=== PATIENT | female | born 1945 | race Caucasian/White ===

== ENCOUNTER 2019-02-08 21:46 | Emergency (ER) | payer MEDICARE, OTHER ==
[~2019-02-08] VITALS: Ht 170.2 cm; Wt 77.1 kg
--- OUTSIDE RECORDS SUMMARY | 2019-02-08 21:48 | XMS REPORT ---
Author Author [facility] Address Unknown Phone Unavailable Care Team Providers Care Continuing Education Director Name Role Phone Unavailable Unavailable Problems This patient has no known problems. Allergies, Adverse Reactions, Alerts This patient has no known allergies or adverse reactions. Medications This patient has no known medications. Results Test Description Test Time Test Comments Text Results Atomic Results Result Comments SCR MAMM BILATERAL UMER CAD DIGITAL 2018-09-06 09:06:58 - SCR MAMM BILATERAL UMER CAD DIGITALBILATERAL DIGITAL SCREENING MAMMOGRAM 3D/2D WITH CAD: 09/05/2018CLINICAL: Asymptomatic. Digital breast tomosynthesis was performed in addition to routine CC and MLO views. Current mammographic images were evaluated by either a [employer] M-Vu or a [employer] ImageFligoocker CAD (computer aided detection system). Comparison is made to exams dated 08/15/2017 mammogram, 07/06 mammogram, and 05/20/2015 mammogram - [facility]-. There are scattered fibroglandular tissues in both breasts. The patient is status post right mastectomy with right TRAM flap reconstruction; stable in appearance.No new suspicious mass, architectural distortion, malignant type calcification, or lymph node abnormality detected. Breast architecture is stable compared to prior exams.IMPRESSION: NEGATIVEThere is no mammographic evidence of malignancy. Resume annual screening mammography in one year. Hanna Das M.D. ar/:09/06/2018 09:06:58 Patternmaker Plaster: Marni JIMENEZ, [facility]-FWletter sent: BIRADS 1-2 Normal Mammogram BI-RADS: 1 Negative
--- OUTSIDE RECORDS SUMMARY | 2019-02-08 21:48 | XMS REPORT | Clinical Summary ---
Author Author [facility] Address Unknown Phone Unavailable Care Team Providers Care Air Value Tester Name Role Phone Kelly Barlow MD PCP Unavailable Allergies No Known Allergies Medications End Date Status Medication Sig Dispensed Refills Start Date Active fluticasone (FLONASE) 50 USE ONE (1) 0 mcg/actuation nasal spray SPRAY(S) IN 8 EACH NOSTRIL TWICE A DAY FOR 7 DAYS THEN TWICE A DAY NEEDED FOR CONGESTION/SI NUS PRESSURE. Active psyllium (METAMUCIL) 0.52 Take 0.52 g 0 gram capsule by mouth daily as needed. Active Lactobac no.41/Bifidobact Take by mouth 0 no.7 (PROBIOTIC-10 ORAL) as needed. Active coenzyme Q10 100 mg Take 100 mg 0 capsule by mouth daily. Active glucosamine Take by mouth 0 HCl/chondroitin rogers daily. (GLUCOSAMINE-CHONDROITIN ORAL) Active multivitamin (THERAGRAN) Take 1 tablet 0 tablet by mouth daily. 05/15/2019 Active citalopram (CeleXA) 20 MG Take 1 tablet 90 tablet 2 tablet (20 mg total) 8 by mouth daily. 06/22/2019 Active rosuvastatin (CRESTOR) 10 Take 1 tablet 90 tablet 3 MG tablet (10 mg total) 8 by mouth daily. 05/15/2018 Discontinued citalopram (CeleXA) 20 MG Take 1 tablet 90 tablet 1 tablet (20 mg total) 8 by mouth daily. 06/22/2018 Discontinued pravastatin (PRAVACHOL) Take 1 tablet 90 tablet 1 10 MG tablet (10 mg total) 8 by mouth nightly. Active Problems Problem Noted Date Hyperlipidemia 05/15/2018 Depression 05/15/2018 Encounters Care Team Description Date Type Specialty Evelyn Olsen MA Result - Labs 08/09/2018 Telephone Cardiology Shon Evans MD Coronary artery disease involving [place] coronary artery of [place] heart without angina pectoris 08/08/2018 Lab Lab Shon Evans MD Coronary artery disease involving [place] coronary artery of [place] heart without angina pectoris (Primary Dx); Hypercholesterolemia 08/08/2018 Office Visit Cardiology Kelly Barlow MD 06/30/2018 Refill Internal Medicine Evelyn Olsen MA Appointment 06/30/2018 Telephone Cardiology Alisson Weaver RN return call/ high triglycerides 06/28/2018 Telephone Cardiology Shon Evans MD Abnormal EKG; Abnormal finding on cardiovascular stress test 06/23/2018 Hospital Procedural Cardiology Encounter Alisson Weaver RN Med Refill 06/22/2018 Refill Cardiology Shon Evans MD Abnormal EKG; Abnormal finding on cardiovascular stress test 06/20/2018 Lab Lab Kelly Barlow MD Schroth, George, MD Hypercholesterolemia (Primary Dx); Abnormal EKG; Abnormal finding on cardiovascular stress test 06/20/2018 Office Visit Cardiology Kelly Barlow MD 05/23/2018 Orders Only Internal Medicine Dorcas Keith MA 05/23/2018 Telephone Internal Medicine Lorenza Mcdermott MA 05/22/2018 Telephone Internal Medicine Kelly Barlow MD Abnormal EKG 05/19/2018 Hospital Procedural Cardiology Encounter Kelly Barlow MD Abnormal EKG (Primary Dx); Abnormal finding on cardiovascular stress test 05/19/2018 Orders Only Internal Medicine Kelly Barlow MD Depression, unspecified depression type (Primary Dx); Hyperlipidemia, unspecified hyperlipidemia type; Immunization due; Abnormal EKG 05/15/2018 Office Visit Internal Medicine after 02/07/2018 Immunizations Name Dates Previously Given Next Due FLUZONE HIGH-DOSE PF 05/15/2018 Influenza Trivalent 04/29/2012 Pneumococcal 05/15/2018 Polysaccharide Tdap 10/22/2015 Family History Medical History Relation Name Comments Ulcers Father PUD Arthritis Mother Heart failure Mother Relation Name Status Comments Father Mother Social History Date Tobacco Use Types Packs/Day Years Used Never Smoker Smokeless Tobacco: Never Used Tobacco Cessation: Counseling Given: Yes Alcohol Use Drinks/Week oz/Week Comments Yes occasionally Sex Assigned at Date Recorded Not on file Industry Job Start Date Occupation Not on file Not on file Not on file Travel End Travel History Travel Start No recent travel history available. Last Filed Vital Signs Time Taken Vital Sign Reading 08/08/2018 3:41 PM INSPECTOR WATCH TRAIN Blood Pressure 128/65 08/08/2018 3:41 PM INSPECTOR [employer] TRA[employer] Pulse 77 05/15/2018 9:30 AM INSPECTOR WATCH TRAIN Temperature 36.4 C (97.5 F) - Respiratory Rate - 05/15/2018 9:30 AM INSPECTOR WATCH TRAIN Oxygen Saturation 100% - Inhaled Oxygen - Concentration 08/08/2018 3:41 PM INSPECTOR WATCH TRAIN Weight 78.5 kg (173 lb) 08/08/2018 3:41 PM INSPECTOR WATCH TRA[employer] Height 165.7 cm (5' 5.25") 08/08/2018 3:41 PM INSPECTOR WATCH TRAIN Body Mass Index 28.57 Plan of Treatment Health Maintenance Due Date Last Done Comments SHINGLES VACCINES (#1) 12/14/1993 INFLUENZA VACCINE 02/08/2019 05/15/2018, 03/11/2017, 04/29/2012 65+ PNEUMOCOCCAL VACCINE 05/15/2019 05/15/2018 (2 of 2 - PCV13) BREAST CANCER SCREENING 08/15/2019 08/15/2017, 06/10/2017 (Previously completed) COLONOSCOPY SCREENING 12/16/2025 12/17/2015 Procedures Comments Procedure Name Priority Date/Time Associated Diagnosis LIPID PANEL Routine 08/08/2018 Coronary artery disease 4:44 PM INSPECTOR WATCH TRAIN involving conf[place] coronary artery of [place] heart without angina pectoris CT CARDIAC CALCIUM SCORE Routine 06/23/2018 Abnormal EKG 2:30 PM INSPECTOR WATCH TRAIN Abnormal finding on cardiovascular stress test LIPID PANEL Routine 06/20/2018 Abnormal EKG 2:30 PM INSPECTOR WATCH TRAIN Abnormal finding on cardiovascular stress test ECG 12-LEAD Routine 06/20/2018 Abnormal EKG 1:55 PM INSPECTOR WATCH TRAIN Abnormal finding on cardiovascular stress test CV TREADMILL STRESS TEST Routine 05/19/2018 Abnormal EKG 11:10 AM INSPECTOR WATCH TRAIN BASIC METABOLIC PANEL Routine 05/18/2018 Depression, unspecified 8:57 AM INSPECTOR WATCH TRAIN depression type THYROID STIMULATING Routine 05/18/2018 Depression, unspecified HORMONE 8:57 AM INSPECTOR WATCH TRAIN depression type LIPID PANEL Routine 05/18/2018 Hyperlipidemia, 8:57 AM INSPECTOR WATCH TRAIN unspecified hyperlipidemia type CBC WITH PLATELET AND Routine 05/18/2018 Depression, unspecified DIFFERENTIAL 8:57 AM INSPECTOR WATCH TRAIN depression type ECG 12-LEAD Routine 05/15/2018 Hyperlipidemia, 11:06 AM INSPECTOR WATCH TRAIN unspecified hyperlipidemia type after 02/07/2018 Results * Lipid panel (08/08/2018 4:44 PM INSPECTOR WATCH TRAIN) Only the most recent of 3 results within the time period is included. [facility] Signature Cholesterol 133 <200 mg/dL [facility] Triglycerides 102 <150 mg/dL [facility] HDL cholesterol 54 >40 mg/dL [facility] LDL cholesterol 70Comment: Result obtained by <100 mg/dL [place] direct LDL measurement [facility] Comment: [facility] Total Cholesterol HOSPITAL (mg/dL) <200 Desirable 200-239Borderline -high >=240High Triglycerides (mg/dL) <150 Normal 150-199Borderline -high 200-499High >=500Very high HDL Cholesterol (mg/dL) <40Low (male) <40Low (female) LDL Cholesterol (mg/dL) <100 Optimal 100-129Near or above optimal 130-159Borderline -high 160-189High >=190Very high Risk Catergories that modify LDL goals. Risk Catergories LDL goal (mg/dL) CHD and CHD risk equivalent<100 (10-year risk >20%) Multiple (2+) risk factors <130 (10-year risk=<20%) 0-1 risk factors <160 (<10-year risk) Defining levels of lipids in metabolic syndrome Triglycerides >=150 mg/dL HDL Cholesterol Men <40 mg/dL Women <40 mg/dL Non-HDL cholesterol is a second target for therapy in persons with high triglycerides (>=200 mg/dL) Specimen Plasma specimen Performing Organization Address City/State/Zipcode Phone Number [facility] DEPARTMENT OF [address] [place] [address] PATHOLOGY AND GENOMIC MEDICINE [address] [address] [facility] * Ct cardiac calcium score (06/23/2018 2:30 PM INSPECTOR WATCH TRAIN) Specimen Narrative Performed At [facility] Nuclear Cardiology and Cardiac CT [address] [place] [address] CT Calcium Scoring Report Pat.Name:Mikey PERRY.ID:[id number] St.Date: 06/23/2018Refer.MD:SHON EVANS MD Exam Time: 2:12:00 PMStudy Type:CT Calcium Scoring Height:65inWeight:178lb BSA: 1.88 m2 DOBAge:1945,72Y Sex: FEMALEHR:83 bpm Nuclear Tech:RT Romulo(R)(CT) Pat. Stat.:Outpatient CPT - 4: Rad Sandy Event ID:[id number] Order ID:[id number] Procedures:CT Flash mode Race:C SUMMARY: Technique: Sequential 3mm CT cuts were obtained through the chest using the Siemens Somatom Force CT scanner with ECG gating.Interactive image viewing and volumetric display and analysis were also performed.The CAC score was quantified using the Agaston scoring method. Non-contrast Cardiac CT results are as follows: The total Coronary Artery Calcium Score (CACS) is 132 .Calcium is distributed in the coronary arteries as follows: Left main: 0 .Left Anterior Descending (LAD): 122 .Left Circumflex (LCx): 7 .Right Coronary Artery (RCA): 3 . The non-contrast CT shows a normal cardiac size, no pericardial abnormalities, a normal aortic root of 3.9cm, a normal thoracic ascending aorta of 3.3cm, and a normal descending thoracic aorta of 2.5cm. The left main and right coronary arteries appear to originate normally from the left and right sinus of Valsalva.The right coronary artery is dominant. Non-Cardiac Findings:Surgical clips in the right lateral chest wall. Conclusion: Abnormal non-contrast cardiac CT. The coronary artery calcium score indicates a moderate extent of coronary atherosclerosis with a 1-2% / year risk of a major cardiac event.The CACS is at the 67th percentile based on age and gender. Recommendation: (1) Intensive risk factor modification is indicated to prevent further progression of coronary atherosclerosis.Unless contraindicated, low dose aspirin (81mg) is recommended in addition to treatment of hyperlipidemia with target LDL levels <70mg/dl. (2) Stress myocardial perfusion imaging may be helpful in selected patients such as those with metabolic syndrome or diabetes mellitus in whom silent myocardial ischemia is more prevalent Signed 06/23/2018 07:49 PM Bryan Toney MD Procedure Note Interface, Radiology Results In - 06/23/2018 7:49 PM [facility] Nuclear Cardiology and Cardiac CT [address] [place] [address] CT Calcium Scoring Report Pat.Name: DIAN PERRY Pat.ID: [id number] .Date: 06/23/2018 Refer.MD: SHON EVANS MD Exam Time: 2:12:00 PM Study Type:CT Calcium Scoring Height: 65in Weight: 178lb BSA: 1.88 m2 Age: 4 1945,72Y Sex: FEMALE HR: 83 bpm Nuclear Tech:RT Romulo(Vashti)(CT) Pat. Stat.:Outpatient CPT - 4: Leroy Pay Nuclear Event ID:[id number] Order ID: [id number] Procedures:CT Flash mode Race: C SUMMARY: Technique: Sequential 3mm CT cuts were obtained through the chest using the Siemens Somatom Force CT scanner with ECG gating. Interactive image viewing and volumetric display and analysis were also performed. The CAC score was quantified using the Agaston scoring method. Non-contrast Cardiac CT results are as follows: The total Coronary Artery Calcium Score (CACS) is 132 . Calcium is distributed in the coronary arteries as follows: Left main: 0 . Left Anterior Descending (LAD): 122 . Left Circumflex (LCx): 7 . Right Coronary Artery (RCA): 3 . The non-contrast CT shows a normal cardiac size, no pericardial abnormalities, a normal aortic root of 3.9cm, a normal thoracic ascending aorta of 3.3cm, and a normal descending thoracic aorta of 2.5cm. The left main and right coronary arteries appear to originate normally from the left and right sinus of Valsalva. The right coronary artery is dominant. Non-Cardiac Findings: Surgical clips in the right lateral chest wall. Conclusion: Abnormal non-contrast cardiac CT. The coronary artery calcium score indicates a moderate extent of coronary atherosclerosis with a 1-2% / year risk of a major cardiac event. The CACS is at the 67th percentile based on age and gender. Recommendation: (1) Intensive risk factor modification is indicated to prevent further progression of coronary atherosclerosis. Unless contraindicated, low dose aspirin (81mg) is recommended in addition to treatment of hyperlipidemia with target LDL levels <70mg/dl. (2) Stress myocardial perfusion imaging may be helpful in selected patients such as those with metabolic syndrome or diabetes mellitus in whom silent myocardial ischemia is more prevalent Signed 06/23/2018 07:49 PM Bryan Toney MD Performing Organization Address City/[facility] Phone Number [facility] [address] [place] [address] * ECG 12 lead (06/20/2018 1:55 PM INSPECTOR WATCH TRAIN) Only the most recent of 2 results within the time period is included. Pathologist [facility] Ventricular 92 [facility] MUSE rate Atrial rate 92 [facility] MUSE AK interval 164 [facility] M[facility] QRSD interval 94 [facility] MUSE QT interval 322 [facility] M[facility] QTC interval 398 [facility] P axis 1 61 [facility] M[facility] QRS axis 1 -26 [facility] M[facility] T wave axis 72 [facility] MUSE EKG impression Normal sinus HM MUSE rhythm-Nonspecific ST and T wave abnormality-Abnormal ECG-In automated comparison with ECG of 15-MAY-2018 11:06,-premature atrial complexes are no longer present-Nonspecific T wave abnormality, worse in Lateral leads-QT has shortened- Specimen Narrative Performed At Performing Organization Address [facility] Phone Number [facility] [address] [place] [address] * CV stress test exercise (05/19/2018 11:10 AM INSPECTOR WATCH TRAIN) Resting HR 86 [facility] MUSE Resting BP [facility] MUSE Peak MET 5.8 [facility] MUSE Achieved Protocol Name BANDAR LIN [facility] MUSE Time in 00:04:01 [facility] MUSE Exercise Phase Max Systolic BP 210 [facility] MUSE Max Diastolic 100 [facility] MUSE BP Max Heart Rate 137 [facility] MUSE Max Predicted 146 [facility] MUSE Heart Rate Target HR (220 - Age)*100% [facility] MUSE Formula Test Indication abn.ekg [facility] MUSE Arrhy During Ex [facility] MUSE ECG Interp [facility] MUSE Before EX ECG Interp [facility] MUSE During Ex Ex Summary [facility] MUSE Comment Overall HR [facility] MUSE Response to Exercise Overall BP [facility] MUSE Response To Exercise Reason for [facility] MUSE Termination Stress Test Inconclusive due to abnormal [facility] MUSE Impression baseline ekg- Specimen Performing Organization Address City/State/Zipcode Phone Number [facility] MUSE [address] [place] [address] * CBC with platelet and differential (05/18/2018 8:57 AM INSPECTOR WATCH TRAIN) Pathologist [facility] WBC 6.4 3.8 - 10.8 [facility] Thousand/uL [facility] [place] RBC 4.17 3.80 - 5.10 [facility] Million/uL [facility] [place] HGB 13.0 11.7 - 15.5 g/dL [facility] [place] HCT 39.1 35.0 - 45.0 % [facility] [place] MCV 93.8 80.0 - 100.0 fL [facility] [place] MCH 31.2 27.0 - 33.0 pg [facility] [place] MCHC 33.2 32.0 - 36.0 g/dL [facility] [place] RDW 12.0 11.0 - 15.0 % [facility] [place] Platelet count 263 140 - 400 [facility] Thousand/uL [facility] [place] MPV 10.7 7.5 - 12.5 fL [facility] [place] Neutrophils, 3,725 1,500 - 7,800 [facility] absolute cells/uL [facility] [place] Lymphocytes, 1,613 850 - 3,900 cells/uL [facility] absolute [facility] [place] Monocytes, 634 200 - 950 cells/uL [facility] absolute [facility] [place] Eosinophils, 358 15 - 500 cells/uL [facility] absolute [facility] [place] Basophils, 70 0 - 200 cells/uL [facility] absolute [facility] [place] Neutrophils 58.2 % [facility] [place] Lymphocytes 25.2 % [facility] [place] Monocytes 9.9 % [facility] [place] Eosinophils 5.6 % [facility] [place] Basophils + RC 1.1 % [facility] [place] Specimen Blood Narrative Performed At FASTING:YES [facility] FASTING: YES Resulting Agency Comment Performing Organization Information: Site ID: [id number] Name: [facility] Address: [address] [place] [phone] Director: Kiera Goldberg Performing Organization Address City/State/[facility]ode Phone Number [employer] [address] [phone] * Thyroid stimulating hormone (05/18/2018 8:57 AM INSPECTOR WATCH TRAIN) TSH 2.94 0.40 - 4.50 mIU/L [employer] [place] Specimen Blood Narrative Performed At FASTING:YES [facility] FASTING: YES Resulting Agency Comment Performing Organization Information: Site ID: [email or web address] Name: [facility] Address: [address] [place] [phone] Director: Kiera Goldberg Performing Organization Address [facility] Phone Number [employer] [address] [address] * Basic metabolic panel (05/18/2018 8:57 AM INSPECTOR WATCH TRAIN) Glucose 95 65 - 99 mg/dL [facility] Comment: DIAGNOSTICS Fasting [place] reference interval BUN, whole 11 7 - 25 mg/dL [facility] blood [facility] [place] Creatinine 0.69 0.60 - 0.93 mg/dL [facility] Comment: DIAGNOSTICS For patients >49 years of age, [place] the reference limit for Creatinine is approximately 13% higher for people identified as -[place]. EGFR Non-Afr. 86 > OR=60 [facility] [place] mL/min/1.73m2 [facility] [place] EGFR 99 > OR=60 [facility] [place] mL/min/1.73m2 [facility] [place] BUN/creatinine NOT APPLICABLE 6 - 22 (calc) [facility] ratio [facility] [place] Sodium 139 135 - 146 mmol/L [facility] [place] Potassium 4.0 3.5 - 5.3 mmol/L [facility] [place] Chloride 104 98 - 110 mmol/L [facility] [place] CO2 27 20 - 32 mmol/L [facility] [place] Calcium 8.9 8.6 - 10.4 mg/dL [facility] [place] Specimen Blood Narrative Performed At FASTING:YES [facility] FASTING: YES Resulting Agency Comment Performing Organization Information: Site ID: [id number] Name: [facility] Address: [address] [place] [phone] Director: Kiera Goldberg Performing Organization Address City/State/Zipcode Phone Number [facility] [employer] [facility] [place] [facility] [place] [phone] after 02/07/2018 Insurance Type Payer Benefit Subscriber ID Effective Phone Address Plan / Dates Group PPO HUMANA MEDICARE HUMANA xxxxxxxxx 2017-P MEDICARE resent PPO/PFFS/E [facility] Advance Directives Patient has advance care planning documents on file. For more information, chris franco contact: True Malcolm [address] [place] [address]
--- OUTSIDE RECORDS SUMMARY | 2019-02-08 21:48 | XMS REPORT | Summary of Care ---
Author Author Kenney Singh R.N. Organization Unknown Address [facility] Phone Unavailable Care Team Providers Care Metal Coater Operator Name Role Phone KATINA BHAGAT M.D. Unavailable Unavailable Kenney Singh R.N. Unavailable Unavailable [place], KATINA Unavailable Unavailable Unavailable Unavailable Functional Status Name Dates Details Functional status health issues are not documented Status: Name Dates Details Cognitive status health issues are not documented Status: Problems Name Dates Details Moderate episode of recurrent major depressive disorder (296.32, F33.1) Status: Active Chronic insomnia (780.52, F51.04) Status: Active Medications Name Dates Details Sertraline HCl - 50 MG Oral Tablet TAKE ONE TABLET BY MOUTH DAILY Quantity: 90 TANNU M.D., KATINA * Start : 09-Jan-2018 Active NIFEdipine 60 MG TBCR take 1 tab BID as directed * Refills: 0 Active Furosemide 40 MG Oral Tablet TAKE 1 TABLET TWICE DAILY. * Refills: 0 Active NovoLOG 100 UNIT/ML Subcutaneous Solution INJECT SUBCUTANEOUSLY DIRECTED. * Refills: 0 Active 10 ML Vial Plavix 75 MG Oral Tablet TAKE 1 TABLET DAILY. * Refills: 0 Active ARIPiprazole 2 MG Oral Tablet TAKE 1.5 TABLETS PO QAM. * Quantity: 135 Refills: 0 TANNU M.D., KATINA * Start : 08-Nov-2017 Active TraZODone HCl - 50 MG Oral Tablet Take 1/2 to 1 tablet at bedtime. * Quantity: 90 Refills: 0 TANNU M.D., KATINA * Start : 08-Nov-2017 Active Allergies and Adverse Reactions Name Dates Details No Known Drug Allergies (Allergy) Status: Active Past Medical History Name Dates Details History of Asthma (493.90, J45.909) Status: Resolved History of Cancer (199.1, C80.1) Status: Resolved History of Depression (311, F32.9) Status: Resolved History of Diabetes (250.00, E11.9) Status: Resolved History of High blood pressure (401.9, I10) Status: Resolved History of Kidney disease (593.9, N28.9) Status: Resolved Procedures Procedure Dates Details Procedures not documented Immunization Name Dates Details Immunizations not documented Social History Name Dates Details Unknown if ever smoked Vital Signs Date Test Result Details [id number] Physical Findings 13 Status: Comments: PHQ-9 Adult Depression Screening [id number] BP Systolic 103 mm[Hg] Status: Comments: Location: LUE; Position: Sitting BP Diastolic 62 mm[Hg] Status: Comments: Location: LUE; Position: Sitting Height 75 in Status: Weight 220 lb Status: Body Mass Index Calculated 27.5 kg/m2 Status: Body Surface Area Calculated 2.29 m2 Status: Temperature 98.4 f Status: Comments: Method: Tympanic Heart Rate 89 /min Status: Comments: Quality: Normal Respiration Rate 14 /min Status: Comments: Quality: Normal O2 SAT 99 % Status: Comments: Source: RA Results Date Description Value Details Results not documented Plan of Care Name Dates Details Planned Observations Planned Goals not documented Planned Encounters Appointment; KATINA BHAGAT M.D. On: 10-Oct-2018 13:00 Interventions Provided Discussion/Summary* Guideline Used: * Other: PA on Aripiprazole * [facility] * Spouse calling to inform Aripiprazole needs a prior authorization. * No new signs or symptoms from patient at this time. * Task sent to [facility] Adult Specialty Clinical Team. * Recommended Disposition: Call back with any further questions or concerns. * Intended Caller Action: * Other: Prior authorization request. * Additional Information: * Spouse verbalizes understanding of the call and agrees to disposition at this time. Instructions Name Dates Details Instructions not documented Encounters Appointment; KATINA BHAGAT M.D. Encounter Diagnosis: Problem not documented On: 08-Nov-2017 9:00 Appointment; KATINA BHAGAT M.D. Encounter Diagnosis: Problem not documented On: 12-Jan-2018 15:00 Appointment; KATINA BHAGAT M.D. Encounter Diagnosis: Problem not documented On: 17-Jul-2018 14:00
--- OUTSIDE RECORDS SUMMARY | 2019-02-08 21:52 | XMS REPORT | Clinical Summary ---
Author Author [facility] Organization [facility] Address Unknown Phone Unavailable Care Team Providers Care Lead Qa Analyst Name Role Phone Kelly Barlow MD PCP [...] Shon Evans MD Coronary artery disease involving tun[place] coronary artery of [place] heart without angina pectoris 08/08/2018 Lab Lab Sohn Evans MD Coronary artery disease involving [place] coronary artery of [place] heart without angina pectoris (Primary Dx); Hypercholesterolemia [...] Taken Vital Sign Reading 08/08/2018 3:41 PM CITY SECRETARY Blood Pressure 128/65 08/08/2018 3:41 PM CITY SECRETARY Pulse 77 05/15/2018 9:30 AM CITY SECRETARY Temperature 36.4 C (97.5 F) - Respiratory Rate - 05/15/2018 9:30 AM CITY SECRETARY Oxygen Saturation 100% - Inhaled Oxygen - Concentration 08/08/2018 3:41 PM CITY SECRETARY Weight 78.5 kg (173 lb) 08/08/2018 3:41 PM CITY SECRETARY Height 165.7 cm (5' 5.25") 08/08/2018 3:41 PM CITY SECRETARY Body Mass Index 28.57 Plan of Treatment Health Maintenance Due Date Last Done Comments SHINGLES VACCINES (#1) 12/14/1993 INFLUENZA VACCINE 02/08/2019 05/15/2018, 03/11/2017, 04/29/2012 65+ PNEUMOCOCCAL VACCINE 05/15/2019 05/15/2018 (2 of 2 - PCV13) BREAST CANCER SCREENING 08/15/2019 08/15/2017, 06/10/2017 (Previously completed) COLONOSCOPY SCREENING 12/16/2025 12/17/2015 Procedures Comments Procedure Name Priority Date/Time Associated Diagnosis LIPID PANEL Routine 08/08/2018 Coronary artery disease 4:44 PM CITY SECRETARY involving [place] coronary artery of [place] heart without angina pectoris CT CARDIAC CALCIUM SCORE Routine 06/23/2018 Abnormal EKG 2:30 PM CITY SECRETARY Abnormal finding on cardiovascular stress test LIPID PANEL Routine 06/20/2018 Abnormal EKG 2:30 PM CITY SECRETARY Abnormal finding on cardiovascular stress test ECG 12-LEAD Routine 06/20/2018 Abnormal EKG 1:55 PM CITY SECRETARY Abnormal finding on cardiovascular stress test CV TREADMILL STRESS TEST Routine 05/19/2018 Abnormal EKG 11:10 AM CITY SECRETARY BASIC METABOLIC PANEL Routine 05/18/2018 Depression, unspecified 8:57 AM CITY SECRETARY depression type THYROID STIMULATING Routine 05/18/2018 Depression, unspecified HORMONE 8:57 AM CITY SECRETARY depression type LIPID PANEL Routine 05/18/2018 Hyperlipidemia, 8:57 AM CITY SECRETARY unspecified hyperlipidemia type CBC WITH PLATELET AND Routine 05/18/2018 Depression, unspecified DIFFERENTIAL 8:57 AM CITY SECRETARY depression type ECG 12-LEAD Routine 05/15/2018 Hyperlipidemia, 11:06 AM CITY SECRETARY unspecified hyperlipidemia type after 02/07/2018 Results * Lipid panel (08/08/2018 4:44 PM CITY SECRETARY) Only the most recent of 3 results within the time period is included. [facility] Signature Cholesterol 133 <200 mg/dL [facility] Triglycerides 102 <150 mg/dL [facility] HDL cholesterol 54 >40 mg/dL [facility] LDL cholesterol 70Comment: Result obtained by <100 mg/dL [place] direct LDL measurement [facility] interpretation Comment: [facility] Total Cholesterol HOSPITAL (mg/dL) <200 Desirable 200-239Borderline [...] specimen Performing Organization Address City/State/Zipcode Phone Number [facility] DEPARTMENT OF [address] [place] [address] PATHOLOGY AND GENOMIC MEDICINE [address] [address] [facility] * Ct cardiac calcium score (06/23/2018 2:30 PM CITY SECRETARY) Specimen Narrative Performed At [facility] Nuclear Cardiology and Cardiac CT [address] [place] [address] CT Calcium Scoring Report Pat.Name:Mikey PERRY.ID:[id number] St.Date: 06/23/2018Refer.MD:SHON EVANS MD Exam Time: 2:12:00 PMStudy Type:CT Calcium Scoring Height:65inWeight:178lb BSA: 1.88 m2 DOBAge:1945,72Y Sex: FEMALEHR:83 bpm Nuclear Tech:RT Romulo(R)(CT) Pat. Stat.:Outpatient CPT - 4: Rad Sandy Event ID:[id number] Order ID:[id number] Procedures:CT Flash mode Race:C SUMMARY: Technique: Sequential [...] Radiology Results In - 06/23/2018 7:49 PM [facility] Nuclear Cardiology and Cardiac CT [address] [place] [address] CT Calcium Scoring Report Pat.Name: DIAN PERRY Pat.ID: [id number] .Date: 06/23/2018 Refer.MD: SHON EVANS MD Exam Time: 2:12:00 PM Study Type:CT Calcium Scoring Height: 65in Weight: 178lb BSA: 1.88 m2 Age: 4 1945,72Y Sex: FEMALE HR: 83 bpm Nuclear Tech:RT Romulo(Vashti)(CT) Pat. Stat.:Outpatient CPT - 4: Leroy Pay Nuclear Event ID:[id number] Order ID: [id number] Procedures:CT Flash mode Race: C SUMMARY: Technique: [...] PM Bryan Toney MD Performing Organization Address City/[facility] Phone Number [facility] [address] [place] [address] * ECG 12 lead (06/20/2018 1:55 PM CITY SECRETARY) Only the most recent of 2 results within the time period is included. Pathologist [facility] Ventricular 92 [facility] MUSE rate Atrial rate 92 [facility] MUSE AR interval 164 [facility] MUSE QRSD interval 94 [...] Specimen Narrative Performed At Performing Organization Address [facility] Phone Number [facility] [address] [place] [address] * CV stress test exercise (05/19/2018 11:10 AM CITY SECRETARY) Resting HR 86 [facility] MUSE Resting BP [...] Specimen Performing Organization Address City/State/Zipcode Phone Number [facility] MUSE [address] [place] [address] * CBC with platelet and differential (05/18/2018 8:57 AM CITY SECRETARY) Pathologist [facility] WBC 6.4 3.8 - 10.8 [facility] Thousand/uL [facility] [place] RBC 4.17 3.80 - 5.10 [facility] Million/uL [facility] [place] HGB 13.0 11.7 - 15.5 g/dL [facility] [place] HCT 39.1 35.0 - 45.0 % [facility] [place] MCV 93.8 80.0 - 100.0 fL [facility] [place] MCH 31.2 27.0 - 33.0 pg [facility] [place] MCHC 33.2 32.0 - 36.0 g/dL [facility] [place] RDW 12.0 11.0 - 15.0 % [facility] [place] Platelet count 263 140 - 400 [facility] Thousand/uL [facility] [place] MPV 10.7 7.5 - 12.5 fL [facility] [place] Neutrophils, 3,725 1,500 - 7,800 [facility] absolute cells/uL [facility] [place] Lymphocytes, 1,613 850 - 3,900 cells/uL [facility] absolute [facility] [place] Monocytes, 634 200 - 950 cells/uL [facility] absolute [facility] [place] Eosinophils, 358 15 - 500 cells/uL [facility] absolute [facility] [place] Basophils, 70 0 - 200 cells/uL [facility] absolute [facility] [place] Neutrophils 58.2 % [facility] [place] Lymphocytes 25.2 % [facility] [place] Monocytes 9.9 % [facility] [place] Eosinophils 5.6 % [facility] [place] Basophils + RC 1.1 % [facility] [place] Specimen Blood Narrative Performed At FASTING:YES [facility] FASTING: YES Resulting Agency Comment Performing Organization Information: Site ID: [id number] Name: [facility] Address: [address] [place] [phone] Director: Kiera Goldberg Performing Organization Address City/State/[facility] Cent[facility]ode Phone Number [facility] [address] [phone] * Thyroid stimulating hormone (05/18/2018 8:57 AM CITY SECRETARY) TSH 2.94 0.40 - 4.50 mIU/L [facility] [place] Specimen Blood Narrative Performed At FASTING:YES [facility] FASTING: YES Resulting Agency Comment Performing Organization Information: Site ID: [id number] Name: [facility] Address: [address] [place] [phone] Director: Kiera Goldberg Performing Organization Address [facility] Phone Number [facility] [address] [address] * Basic metabolic panel (05/18/2018 8:57 AM CITY SECRETARY) Glucose 95 65 - 99 mg/dL [facility] Comment: DIAGNOSTICS Fasting [place] reference interval BUN, whole 11 7 - 25 mg/dL [facility] blood [facility] [place] Creatinine 0.69 0.60 - 0.93 mg/dL [facility] Comment: DIAGNOSTICS For patients >49 years of age, [place] the reference limit for Creatinine is approximately 13% higher for people identified as -Danish. EGFR Non-Afr. 86 > OR=60 [facility] Danish mL/min/1.73m2 [facility] [place] EGFR 99 > OR=60 [facility] Danish mL/min/1.73m2 [facility] [place] BUN/creatinine NOT APPLICABLE 6 - 22 (calc) [facility] ratio [facility] [place] Sodium 139 135 - 146 mmol/L [facility] [place] Potassium 4.0 3.5 - 5.3 mmol/L [facility] [place] Chloride 104 98 - 110 mmol/L [facility] [place] CO2 27 20 - 32 mmol/L [facility] [place] Calcium 8.9 8.6 - 10.4 mg/dL [facility] [place] Specimen Blood Narrative Performed At FASTING:YES [facility] FASTING: YES Resulting Agency Comment Performing Organization Information: Site ID: [id number] Name: [facility] Address: [address] [place] [phone] Director: Kiera Goldberg Performing Organization Address City/State/Zipcode Phone Number [facility] [employer] [facility] [place] [phone] after 02/07/2018 Insurance Type Payer Benefit Subscriber ID Effective Phone Address Plan / Dates Group PPO HUMANA MEDICARE HUMANA xxxxxxxxx [id number] MEDICARE resent PPO/PFFS/E RS [facility] Advance Directives Patient has advance care planning documents on file. For more information, chris franco contact: True Malcolm [address] [place] [address]
--- NOTE | 2019-02-08 23:26 | Diagnostic Imaging Report ---
History: Fall, pain left face Comparison studies:None Technique: Axial images were obtained from the brain, face and cervical spine. Coronal and sagittal reconstructions obtained from the axial data. Dose modulation, iterative reconstruction, and/or weight based adjustment of the mA/kV was utilized to reduce the radiation dose to as low as reasonably achievable. Intravenous contrast: None Findings: Head CT: Scalp/skull: No abnormalities. No fractures, blastic or lytic lesions. Extra-axial spaces: No masses. No fluid collections. Brain sulci: Appropriate for age. Ventricles: Normal in size and configuration. No hydrocephalus. Parenchyma: No abnormal densities. No masses, hemorrhage, acute or chronic cortical vascular insults. Sellar/suprasellar region: No abnormalities Craniocervical junction: Patent foramen magnum. No Chiari one malformation. Maxillofacial CT: Soft tissues: An acute right periorbital/facial hematoma is associated with a punctate air focus lateral to the left maxillary sinus (series 8, image 77) but no hyperdense foreign bodies. Bones: A subtle comminuted fracture in the posterolateral wall of the left maxillary sinus does not extend into the skull base (series 8, image 72). Otherwise, no fractures or bony abnormalities. . Orbits: No abnormalities. Paranasal sinuses: Partial hemorrhagic and inflammatory opacification of the left maxillary sinus. Otherwise, scattered nonobstructing mucosal thickening. Cervical spine CT: Airway: Patent. Fractures: None. Soft tissues: No gross abnormalities. Atlantoaxial articulation: Minimally degenerated. Alignment: Normal lordosis. No scoliosis. Cervicomedullary junction: No abnormalities. The foramen magnum is patent. Vertebrae: Bones mildly the mineralized but no compression fractures No infection or neoplasm. Degenerative changes: Mildly degenerated discs at C5-6 and C6-7. Severely degenerated facets on the left at C4-5 and to a lesser extent at C5-6, bilaterally at C6-7 and C7-T1. Mild left foraminal stenosis at C4-5 due to the facet arthrosis. No significant spinal canal stenosis.. Incidental findings: Atherosclerotic calcifications at the carotid bulbs. IMPRESSION: Head CT: No intracranial abnormalities. Facial CT: 1. An acute left periorbital/facial superficial hematoma is associated with a subtle comminuted fracture in the posterolateral wall of the left maxillary sinus and with partial hemorrhagic and inflammatory opacification of the antrum. 2. No additional acute fractures or acute maxillofacial abnormalities. Cervical spine CT: 1. No acute abnormalities. No fractures 2. Cannot adequately evaluate for ligament, spinal cord and or vascular abnormalities. 3. Degenerative changes as described Signed by: Dr. Hemanth Mancera M.D. on 02/08/2019 11:23 PM
[2019-02-08] MEDS ORDERED: BACITRACIN ZINC 0.9GM TP ONE (23:45)
[2019-02-08 23:57] VITALS: BP 126/61
== END 2019-02-09 00:13 | disposition home or self-care (01) ==
LOC: ER 21:46
DX: S02.40CA Maxillary fracture, right side, initial encounter for closed fracture (principal); S00.212A Abrasion of left eyelid and periocular area, initial encounter; S00.83XA Contusion of other part of head, initial encounter; W01.0XXA Fall on same level from slipping, tripping and stumbling without subsequent striking against object, initial encounter; Y93.01 Activity, walking, marching and hiking; Y92.018 Other place in single-family (private) house as the place of occurrence of the external cause
CPT/HCPCS: 70450; 70486; 72125; 99283

== ENCOUNTER 2019-05-02 00:21 | Emergency (ER) | payer MEDICARE ==
[~2019-05-02] VITALS: Ht 170.2 cm; Wt 77.1 kg
--- OUTSIDE RECORDS SUMMARY | 2019-05-02 00:24 | XMS REPORT ---
Author Author [facility] Address Unknown Phone Unavailable Care Team Providers Care Division Road Supervisor Name Role Phone Ming FELIX Unavailable Unavailable Problems This patient has no known problems. Allergies, Adverse Reactions, Alerts This patient has no known allergies or adverse reactions. Medications This patient has no known medications. Results Test Description Test Time Test Comments Text Results Atomic Results Result Comments CT CERVICAL SPINE WO 2019-02-08 23:11:00 [place] [address] Patient Name: DIAN CALLAHAN MR #: [id number] : 1945 Age/Sex: 73/F Req #: [id number] Adm Physician: Ordered by: SIMA FELIX MD Report #: [id number] Location: ER Room/Bed: Procedure: [id number] CT/CT CERVICAL SPINE WO Exam Date: Exam Time: REPORT STATUS: Signed History: Fall, pain left face Comparison studies:None Technique: Axial images were obtained from the brain, face and cervical spine. Coronal and sagittal reconstructions obtained from the axial data. Dose modulation, iterative reconstruction, and/or weight based adjustment of the mA/kV was utilized to reduce the radiation dose to as low as reasonably achievable. Intravenous contrast: None Findings: Head CT: Scalp/skull: No abnormalities. No fractures, blastic or lytic lesions. Extra-axial spaces: No masses. No fluid collections. Brain sulci: Appropriate for age. Ventricles: Normal in size and configuration. No hydrocephalus. Parenchyma: No abnormal densities. No masses, hemorrhage, acute or chronic cortical vascular insults. Sellar/suprasellar region: No abnormalities Craniocervical junction: Patent foramen magnum. No Chiari one malformation. Maxillofacial CT: Soft tissues: An acute right periorbital/facial hematoma is associated with a punctate air focus lateral to the left maxillary sinus (series 8, image 77) but no hyperdense foreign bodies. Bones: A subtle comminuted fracture in the posterolateral wall of the left maxillary sinus does not extend into the skull base (series 8, image 72). Otherwise, no fractures or bony abnormalities. . Orbits: No abnormalities. Paranasal sinuses: Partial hemorrhagic and inflammatory opacification of the left maxillary sinus. Otherwise, scattered nonobstructing mucosal thickening. Cervical spine CT: Airway: Patent. Fractures: None. Soft tissues: No gross abnormalities. Atlantoaxial articulation: Minimally degenerated. Alignment: Normal lordosis. No scoliosis. Cervicomedullary junction: No abnormalities. The foramen magnum is patent. Vertebrae: Bones mildly the mineralized but no compression fractures No infection or neoplasm. Degenerative changes: Mildly degenerated discs at C5-6 and C6-7. Severely degenerated facets on the left at C4-5 and to a lesser extent at C5-6, bilaterally at C6-7 and C7-T1. Mild left foraminal stenosis at C4-5 due to the facet arthrosis. No significant spinal canal stenosis.. Incidental findings: Atherosclerotic calcifications at the carotid bulbs. IMPRESSION: Head CT: No intracranial abnormalities. Facial CT: 1. An acute left periorbital/facial superficial hematoma is associated with a subtle comminuted fracture in the posterolateral wall of the left maxillary sinus and with partial hemorrhagic and inflammatory opacification of the antrum. 2. No additional acute fractures or acute maxillofacial abnormalities. Cervical spine CT: 1. No acute abnormalities. No fractures 2. Cannot adequately evaluate for ligament, spinal cord and or vascular abnormalities. 3. Degenerative changes as described Signed by: Dr. Hemanth Mancera M.D. on 02/08/2019 11:23 PM Dictated By: HEMANTH MANCERA MD, MD [id number] Transcribed By: LORETTA on 02/08/19 2323 COPY TO: SIMA FELIX MD CT MAXIO FAC/PARANAS WO 2019-02-08 23:11:00 [place] [address] Patient Name: DIAN CALLAHAN MR #: [id number] : 1945 Age/Sex: 73/F Req #: [id number] Adm Physician: Ordered by: SIMA FELIX MD Report #: [id number] Location: ER Room/Bed: Procedure: [id number] CT/CT MAXIO FAC/PARANAS WO Exam Date: Exam Time: REPORT STATUS: Signed History: Fall, pain left face Comparison studies:None Technique: Axial images were obtained from the brain, face and cervical spine. Coronal and sagittal reconstructions obtained from the axial data. Dose modulation, iterative reconstruction, and/or weight based adjustment of the mA/kV was utilized to reduce the radiation dose to as low as reasonably achievable. Intravenous contrast: None Findings: Head CT: Scalp/skull: No abnormalities. No fractures, blastic or lytic lesions. Extra-axial spaces: No masses. No fluid collections. Brain sulci: Appropriate for age. Ventricles: Normal in size and configuration. No hydrocephalus. Parenchyma: No abnormal densities. No masses, hemorrhage, acute or chronic cortical vascular insults. Sellar/suprasellar region: No abnormalities Craniocervical junction: Patent foramen magnum. No Chiari one malformation. Maxillofacial CT: Soft tissues: An acute right periorbital/facial hematoma is associated with a punctate air focus late ral to the left maxillary sinus (series 8, image 77) but no hyperdense foreign bodies. Bones: A subtle comminuted fracture in the posterolateral wall of the left maxillary sinus does not extend into the skull base (series 8, image 72). Otherwise, no fractures or bony abnormalities. . Orbits: No abnormalities. Paranasal sinuses: Partial hemorrhagic and inflammatory opacification of the left maxillary sinus. Otherwise, scattered nonobstructing mucosal thickening. Cervical spine CT: Airway: Patent. Fractures: None. Soft tissues: No gross abnormalities. Atlantoaxial articulation: Minimally degenerated. Alignment: Normal lordosis. No scoliosis. Cervicomedullary junction: No abnormalities. The foramen magnum is patent. Vertebrae: Bones mildly the mineralized but no compression fractures No infection or neoplasm. Degenerative changes: Mildly degenerated discs at C5-6 and C6-7. Severely degenerated facets on the left at C4-5 and to a lesser extent at C5-6, bilaterally at C6-7 and C7-T1. Mild left foraminal stenosis at C4-5 due to the facet arthrosis. No significant spinal canal stenosis.. Incidental findings: Atherosclerotic calcifications at the carotid bulbs. IMPRESSION: Head CT: No intracranial abnormalities. Facial CT: 1. An acute left periorbital/facial superficial hematoma is associated with a subtle comminuted fracture in the posterolateral wall of the left maxillary sinus and with partial hemorrhagic and inflammatory opacification of the antrum. 2. No additional acute fractures or acute maxillofacial abnormalities. Cervical spine CT: 1. No acute abnormalities. No fractures 2. Cannot adequately evaluate for ligament, spinal cord and or vascular abnormalities. 3. Degenerative changes as described Signed by: Dr. Hemanth Mancera M.D. on 02/08/2019 11:23 PM Dictated By: HEMANTH MANCERA MD, MD Transcribed By: LORETTA on 02/08/19 2323 COPY TO: SIMA FELIX MD CT BRAIN WO 2019-02-08 23:11:00 [place] [address] Patient Name: DIAN CALLAHAN MR #: [id number] : 1945 Age/Sex: 73/F Req #: [id number] Adm Physician: Ordered by: SIMA FELIX MD Report #: [id number] Location: ER Room/Bed: Procedure: [id number] CT/CT BRAIN WO Exam Date: Exam Time: REPORT STATUS: Signed History: Fall, pain left face Comparison studies:None Technique: Axial images were obtained from the brain, face and cervical spine. Coronal and sagittal reconstructions obtained from the axial data. Dose modulation, iterative reconstruction, and/or weight based adjustment of the mA/kV was utilized to reduce the radiation dose to as low as reasonably achievable. Intravenous contrast: None Findings: Head CT: Scalp/skull: No abnormalities. No fractures, blastic or lytic lesions. Extra-axial spaces: No masses. No fluid collections. Brain sulci: Appropriate for age. Ventricles: Normal in size and configuration. No hydrocephalus. Parenchyma: No abnormal densities. No masses, hemorrhage, acute or chronic cortical vascular insults. Sellar/suprasellar region: No abnormalities Craniocervical junction: Patent foramen magnum. No Chiari one malformation. Maxillofacial CT: Soft tissues: An acute right periorbital/facial hematoma is associated with a punctate air focus lateral to the left maxillary sinus (series 8, image 77) but no hyperdense foreign bodies. Bones: A subtle comminuted fracture in the posterolateral wall of the left maxillary sinus does not extend into the skull base (series 8, image 72). Otherwise, no fractures or bony abnormalities. . Orbits: No abnormalities. Paranasal sinuses: Partial hemorrhagic and inflammatory opacification of the left maxillary sinus. Otherwise, scattered nonobstructing mucosal thickening. Cervical spine CT: Airway: Patent. Fractures: None. Soft tissues: No gross abnormalities. Atlantoaxial articulation: Minimally degenerated. Alignment: Normal lordosis. No scoliosis. Cervicomedullary junction: No abnormalities. The foramen magnum is patent. Vertebrae: Bones mildly the mineralized but no compression fractures No infection or neoplasm. Degenerative changes: Mildly degenerated discs at C5-6 and C6-7. Severely degenerated facets on the left at C4-5 and to a lesser extent at C5-6, bilaterally at C6-7 and C7-T1. Mild left foraminal stenosis at C4-5 due to the facet arthrosis. No significant spinal canal stenosis.. Incidental findings: Atherosclerotic calcifications at the carotid bulbs. IMPRESSION: Head CT: No intracranial abnormalities. Facial CT: 1. An acute left periorbital/facial superficial hematoma is associated with a s ubtle comminuted fracture in the posterolateral wall of the left maxillary sinus and with partial hemorrhagic and inflammatory opacification of the antrum. 2. No additional acute fractures or acute maxillofacial abnormalities. Cervical spine CT: 1. No acute abnormalities. No fractures 2. Cannot adequately evaluate for ligament, spinal cord and or vascular abnormalities. 3. Degenerative changes as described Signed by: Dr. Hemanth Mancera M.D. on 02/08/2019 11:23 PM Dictated By: HEMANTH MANCERA MD, MD Electronically Signed By: HEMANTH MANCERA MD, MD on 0 02/08/193 Transcribed By: LORETTA on 02/08/19 2323 COPY TO: SIMA FELIX MD SCR MAMM BILATERAL UMER CAD DIGITAL 2018-09-06 09:06:58 - SCR MAMM BILATERAL UMER CAD DIGITALBILATERAL DIGITAL SCREENING MAMMOGRAM 3D/2D WITH CAD: 09/05/2018CLINICAL: Asymptomatic. Digital breast tomosynthesis was performed in addition to routine CC and MLO views. Current mammographic images were evaluated by either a [employer] M-Vu or a [employer] Group[employer] CAD (computer aided detection system). Comparison is made to exams dated 08/15/2017 mammogram, 07/06 mammogram, and 05/20/2015 mammogram - [facility]-. There are scattered fibroglandular tissues [...] one year. Hanna Das M.D. ar/:09/06/2018 09:06:58 Sat Instructor: Marni Mendoza , [facility]-FWletter sent: BIRADS 1-2 Normal Mammogram BI-RADS: 1 Negative
[2019-05-02] MEDS ORDERED: HYDROCODONE/APAP 5MG-325MG TAB PO ONE ×2 (01:15→07:00)
--- NOTE | 2019-05-02 01:38 | Diagnostic Imaging Report ---
EXAMINATION: Head and cervical spine CT without contrast. HISTORY: Status post fall, head and neck pain, right shoulder pain COMPARISON: Head and cervical spine CT 02/08/2019 TECHNIQUE: Multidetector axial images were obtained without contrast from the foramen magnum to the vertex and through the cervical spine. The images were reconstructed using brain and bone algorithms. Thin section brain images were reformatted into coronal and sagittal planes. Dose modulation, iterative reconstruction, and/or weight based adjustment of the mA/kV was utilized to reduce the radiation dose to as low as reasonably achievable. HEAD CT FINDINGS: Skull/scalp: No lytic or blastic lesions. No fractures. Parenchyma: Normal. No mass, hemorrhage or CT evidence of acute vascular insult. Brain volume: Normal for age. Ventricles: No hydrocephalus or displacement. Arteries: No density suggestive of thrombus. Dural sinuses: No abnormal density. Extra-axial spaces: No abnormal density. Foramen magnum: Local lying cerebellar tonsils with mild fullness at the level of the foramen magnum and, unchanged from prior study. Sella: No obvious mass. Paranasal/mastoid sinuses: Opacification of the left frontal and ethmoidal sinuses is new since prior head CT of 02/08/2019. CERVICAL SPINE CT FINDINGS: Alignment:Normal alignment and lordosis. Soft tissues: Normal. Vertebrae: Normal height and density. No acute fracture, infection or neoplasm. Degenerative changes: Unchanged compared to prior cervical spine CT. Mildly degenerated discs at C5-6 and C6-7. Severely degenerated facets on the left at C4-5 and to a lesser extent at C5-6, bilaterally at C6-7 and C7-T1. Mild left foraminal stenosis at C4-5 due to the facet arthrosis. No significant spinal canal stenosis. Minimal degenerative anterolisthesis at C4-C5 is unchanged as well. IMPRESSION: Head CT: No acute posttraumatic intracranial abnormality, particularly no hemorrhage. Unchanged compared to head CT of 02/08/[address]: 1. No acute fractures or dislocations. 2. Stable chronic degenerative changes as described. Note: Acute post traumatic spinal cord, vascular or ligamentous injury cannot adequately be assessed with CT. Signed by: Dr. Yvonne Morfin M.D. on 05/02/2019 1:34 AM
--- NOTE | 2019-05-02 02:10 | NUR ---
report given to robby warner
--- NOTE | 2019-05-02 02:44 | Diagnostic Imaging Report ---
X-RAY RIGHT SHOULDER 2 VIEWS X-RAY RIGHT HUMERUS 2 VIEWS HISTORY: Pain. COMPARISON: None available. FINDINGS: Bones: Acute nondisplaced humeral neck fracture. Osseous alignment is within normal limits. Joints: The joint spaces are well-maintained. Soft tissues: Surgical clips in the right exam. IMPRESSION: Acute nondisplaced right humeral neck fracture. Signed by: Rafael Martinez DO on 05/02/2019 2:41 AM
--- NOTE | 2019-05-02 07:24 | NUR ---
SLING PLACED FOR PT
== END 2019-05-02 07:25 | disposition home or self-care (01) ==
LOC: ER 00:21
DX: S42.301A Unspecified fracture of shaft of humerus, right arm, initial encounter for closed fracture (principal); S00.83XA Contusion of other part of head, initial encounter; M54.2 Cervicalgia; W01.0XXA Fall on same level from slipping, tripping and stumbling without subsequent striking against object, initial encounter; Y93.01 Activity, walking, marching and hiking; Y92.008 Other place in unspecified non-institutional (private) residence as the place of occurrence of the external cause; E78.5 Hyperlipidemia, unspecified; Z85.3 Personal history of malignant neoplasm of breast
CPT/HCPCS: 70450; 72125; 99283

== ENCOUNTER 2020-01-26 09:25 | Emergency (ER) | payer MEDICARE ==
[~2020-01-26] VITALS: Ht 167.6 cm; Wt 83.9 kg
[2020-01-26 11:39] LABS: BILIRUBIN,URINE NEGATIVE (NEGATIVE); CLARITY,URINE CLEAR (CLEAR); COLOR,URINE YELLOW (YELLOW); KETONES,URINE NEGATIVE (NEGATIVE); LEUKOCYTE ESTERASE ,URINE NEGATIVE (NEGATIVE); NITRITE,URINE NEGATIVE (NEGATIVE); PROTEIN,URINE DIPSTICK NEGATIVE (NEGATIVE); URINE UROBILINOGEN 1 mg/dL (0.2 - 1); WBC,URINE (MAN) 0-5 /HPF (0-5)
[2020-01-26 11:40] LABS: BACTERIA,URINE FEW /HPF; EPITHELIAL CELLS,URINE FEW /LPF; MUCUS,URINE FEW (RARE); RBC,URINE 0-5 /HPF (0-5)
--- NOTE | 2020-01-26 11:48 | Diagnostic Imaging Report ---
EXAM: CT Pelvis WITHOUT contrast INDICATION: FALL 2 DAYS AGO COMPARISON: None. TECHNIQUE: Pelvis were scanned utilizing a multidetector helical scanner from the iliac crest to the pubic symphysis without administration of IV contrast. Coronal and sagittal reformations were obtained. Routine protocol was performed. IV CONTRAST: None ORAL CONTRAST: Water COMPLICATIONS: None RADIATION DOSE: Total DLP: 675.21 mGy*cm Estimated effective dose: (DLP x 0.015 x size factor) mSv CTDIvol has been reviewed. It is below the limits set by the Radiation Protocol Committee (RPC). FINDINGS: LINES and TUBES: None. GI TRACT: No abnormal distention, wall thickening, or evidence of bowel obstruction. There are diverticula within the colon without evidence of diverticulitis. PELVIC ORGANS/BLADDER: The bladder is underdistended limiting evaluation. LYMPH NODES: No lymphadenopathy. VESSELS: Unremarkable. PERITONEUM / RETROPERITONEUM: No free air or fluid. BONES: There are degenerative changes in the spine. SOFT TISSUES: Unremarkable. IMPRESSION: 1. No traumatic injury. 2. Sigmoid diverticulosis with no evidence of diverticulitis. Signed by: Migue Jacobs MD on 01/26/2020 11:44 AM
--- NOTE | 2020-01-26 11:54 | Diagnostic Imaging Report ---
EXAMINATION: CT of the lumbar spine HISTORY: Status post fall 2 days ago, severe back pain COMPARISON: None available TECHNIQUE: Multidetector helical axial images were obtained without contrast from L1 to S1. The images were reconstructed using bone and soft tissue algorithms and were viewed in axial, sagittal, and coronal planes. Dose modulation, iterative reconstruction, and/or weight based adjustment of the mA/kV was utilized to reduce the radiation dose to as low as reasonably achievable. FINDINGS: Alignment: Normal alignment and lordosis. Vertebral bodies: Mild acute osteoporotic compression fracture of the L1 vertebral body, there is depression of the superior endplate and decreased vertebral body height by approximately 15%, very minimal posterior retropulsion of the superior endplate (about 1.5 mm), no associated significant spinal canal stenoses. Diffuse osteopenia. Benign hemangioma in the L3 vertebral body. Paraspinal muscles: Mild paraspinal soft tissue swelling at the above-mentioned L1 fracture.. Intervertebral disks: L1-L2: Normal L2-L3: Minimal symmetric disc bulge. No canal or foraminal stenoses. L3-L4: Mild symmetric disc bulge, vacuum phenomena, no significant canal stenosis, minimal bilateral foraminal narrowing. L4-L5: Mild symmetric disc bulge and facet arthrosis. Minimal inferior foraminal narrowing. L5-S1: Mild symmetric disc bulge and facet arthrosis. No spinal canal stenosis, minimal inferior foraminal stenoses. Partially visualized sacroiliac joints: Mild degenerative changes. IMPRESSION: 1. Acute mild osteoporotic compression fracture of the L1 vertebral body with minimal posterior retropulsion, no significant spinal canal stenosis. 1) Mild degenerative changes mainly from L3-L4 to L5-S1 as above. The findings were discussed with the ER physician Dr. Hager on 01/26/2020 11:45 AM. Signed by: Dr. Yvonne Morfin M.D. on 01/26/2020 11:50 AM
[2020-01-26] MEDS ORDERED: LIDOCAINE 4% PATCH TP STA (12:27)
--- NOTE | 2020-01-26 12:27 | Emergency Department Note ---
History of Present Illnes History of Present Illness Chief Complaint: Back Pain History of Present Illness This is a 74 year old female 74 y/o female presents to ED via EMS for c/o low back pain s/p fall 2 days ago. No neuro deficits. Historian: Patient Arrival Mode: [facility] WAREHOUSE PERSON: See EMS Report [employer] Required: No Onset (how long ago): day(s) (2) Location: LOW BACK Quality: PAIN Radiation: Reports non-radiation Severity: moderate Onset quality: sudden Timing of current episode: constant Progression: unchanged Chronicity: new Context: Denies recent illness Relieving factors: none Exacerbating factors: none Associated symptoms: Reports denies other symptoms Treatments prior to arrival: none Past Medical/Family History Physician Review I have reviewed the patient's past medical and family history. Any updates have been documented here. Past Medical History Recent Fever: No Clinical Suspicion of Infectio: No New/Unexplained Change in Ment: No Past Medical History: Hyperlipedemia Past Surgical History: Appendectomy, Mastectomy Other Surgery: breast cancer rt mastectomy [facility] Social History Smoking Cessation: Never Smoker Counseling Performed: No Alcohol Use: None Any Illegal Drug Use: No TB Exposure/Symptoms: No Physically hurt or threatened: No Other Last Tetanus: unknown Any Pre-Existing Lines (PICC,: No Review of Systems Review of Systems Constitutional: Reports no symptoms EENTM: Reports no symptoms Cardiovascular: Reports no symptoms Respiratory: Reports no symptoms Gastrointestinal: Reports no symptoms Genitourinary: Reports no symptoms Musculoskeletal: Reports back pain Integumentary: Reports no symptoms Neurological: Reports no symptoms Psychological: Reports no symptoms Endocrine: Reports no symptoms Hematological/Lymphatic: Reports no symptoms Physical Exam Related Data Allergies: Coded Allergies: No Known Allergies (Unverified , 03/01/16) Triage Vital Signs Vital Signs Date Time Temp Pulse Resp B/P (MAP) Pulse Ox O2 Delivery O2 Flow Rate FiO2 01/26/20 09:40 98.5 75 18 135/66 96 Room Air Vital signs reviewed: Yes Physical Exam CONSTITUTIONAL Constitutional: Present well-developed, Present well-nourished HENT HENT: Present normocephalic, Present atraumatic, Present oropharynx clear/moist, Present nose normal HENT L/R: Present left ext ear normal, Present right ext ear normal EYES Eyes: Reports PERRL, Reports conjunctivae normal NECK Neck: Present ROM normal PULMONARY Pulmonary: Present effort normal, Present breath sounds normal CARDIOVASCULAR Cardiovascular: Present regular rhythm, Present heart sounds normal, Present capillary refill normal, Present normal rate GASTROINTESTINAL Abdominal: Present soft, Present nontender, Present bowel sounds normal GENITOURINARY Genitourinary: Present exam deferred SKIN Skin: Present warm, Present dry MUSCULOSKELETAL Musculoskeletal: Present other (TENDER AT UPPER LUMBAR SPINE AND PARASPINAL MUSCLES) NEUROLOGICAL Neurological: Present alert, Present oriented x 3, Present no gross motor or sensory deficits PSYCHOLOGICAL Psychological: Present mood/affect normal, Present judgement normal Results Laboratory Laboratory Laboratory Tests Test 01/26/20 11:11 Urine Color Yellow (YELLOW) Urine Clarity Clear (CLEAR) Urine pH 7 (5 - 7) Urine Specific [place] 1.025 (1.010-1.025) Urine Protein Negative (NEGATIVE) Urine Glucose (UA) Negative (NEGATIVE) Urine Ketones Negative (NEGATIVE) Urine Blood Trace (NEGATIVE) Urine Nitrite Negative (NEGATIVE) Urine Bilirubin Negative (NEGATIVE) Urine Urobilinogen 1 mg/dL (0.2 - 1) Urine Leukocyte Esterase Negative (NEGATIVE) Urine RBC 0-5 /HPF (0-5) Urine WBC 0-5 /HPF (0-5) Urine Epithelial Cells Few /LPF (NONE) Urine Bacteria Few /HPF (NONE) Urine Mucus Few (RARE) Lab results reviewed: Yes Imaging Imaging results reviewed: Yes Impressions EXAMINATION: CT of the lumbar spine HISTORY: Status post fall 2 days ago, severe back pain COMPARISON: None available TECHNIQUE: Multidetector helical axial images were obtained without contrast from L1 to S1. The images were reconstructed using bone and soft tissue algorithms and were viewed in axial, sagittal, and coronal planes. Dose modulation, iterative reconstruction, and/or weight based adjustment of the mA/kV was utilized to reduce the radiation dose to as low as reasonably achievable. FINDINGS: Alignment: Normal alignment and lordosis. Vertebral bodies: Mild acute osteoporotic compression fracture of the L1 vertebral body, there is depression of the superior endplate and decreased vertebral body height by approximately 15%, very minimal posterior retropulsion of the superior endplate (about 1.5 mm), no associated significant spinal canal stenoses. Diffuse osteopenia. Benign hemangioma in the L3 vertebral body. Paraspinal muscles: Mild paraspinal soft tissue swelling at the above-mentioned L1 fracture.. Intervertebral disks: L1-L2: Normal L2-L3: Minimal symmetric disc bulge. No canal or foraminal stenoses. L3-L4: Mild symmetric disc bulge, vacuum phenomena, no significant canal stenosis, minimal bilateral foraminal narrowing. L4-L5: Mild symmetric disc bulge and facet arthrosis. Minimal inferior foraminal narrowing. L5-S1: Mild symmetric disc bulge and facet arthrosis. No spinal canal stenosis, minimal inferior foraminal stenoses. Partially visualized sacroiliac joints: Mild degenerative changes. IMPRESSION: 1. Acute mild osteoporotic compression fracture of the L1 vertebral body with minimal posterior retropulsion, no significant spinal canal stenosis. 1) Mild degenerative changes mainly from L3-L4 to L5-S1 as above. The findings were discussed with the ER physician Dr. Varghese on 01/26/2020 11:45 AM. Signed by: Dr. Yvonne Morfin M.D. on 01/26/2020 11:50 AM Assessment & Plan Medical Decision Making MDM FALL 2 D AGO WITH BACK PAIN - CHECK CT L-SPINE AND PELVIS, UA - R/O L-SPINE FX, PELVIS FX, UTI Reassessment Reassessment IMPROVED, NO NEURO DEFICITS WITH ACUTE L-SPINE FX - WILL DC WITH PAIN MEDS, LIDOCAINE PATCHES, F/U PCP TUESDAY Assessment & Plan Final Impression: (1) Lumbar compression fracture Depart Disposition: HOME, SELF-CARE Last Vital Signs Date Time Temp Pulse Resp B/P (MAP) Pulse Ox O2 Delivery O2 Flow Rate FiO2 01/26/20 09:40 98.5 75 18 135/66 96 Room Air JERONIMO VARGHESE MD Jan 26, 2020 12:27
[2020-01-26] MEDS ORDERED: ACETAMINOPHEN 325 MG TAB PO ONE (13:00)
[2020-01-26 13:29] VITALS: BP 124/80
--- NOTE | 2020-01-26 13:38 | NUR ---
Preparing pt for discharge to home, pt awaiting ride at this time.
== END 2020-01-26 15:01 | disposition home or self-care (01) ==
LOC: ER 09:31
DX: S32.010A Wedge compression fracture of first lumbar vertebra, initial encounter for closed fracture (principal); W18.30XA Fall on same level, unspecified, initial encounter; E78.5 Hyperlipidemia, unspecified; Z85.3 Personal history of malignant neoplasm of breast
CPT/HCPCS: 72131; 72192; 81001; 99284

== ENCOUNTER → 2020-11-17 | Outpatient (CLI) | payer MEDICARE | LOC: US 07:29 | PROVIDERS: ATTEND Family Medicine | DX: R10.13 Epigastric pain (principal) | CPT/HCPCS: 76700 ==